=== PATIENT | female | born 1955 | race Two or more races ===

== ENCOUNTER 2020-04-14 08:45 | Outpatient (REF) | payer MEDICARE, MEDICAID, SELFPAY | END 2020-04-14 08:46 | disposition home or self-care (01) | LOC: HO.LAB 08:45 | PROVIDERS: Visit Provider Internal Medicine | DX: Z20.828 Contact with and (suspected) exposure to other viral communicable diseases (principal) | CPT/HCPCS: C9803; U0003 ==

== ENCOUNTER 2020-07-05 08:40 | Outpatient (REF) | payer MEDICARE, MEDICAID, SELFPAY ==
[2020-07-05 09:14] LABS: MANUAL DIFF FLAG NO
[2020-07-05 09:33] LABS: Basophils Absolute Auto 0.1 X10*3/uL (0.0-0.2); Basophils Percent Auto 0.8 % (0-2); Eosinophils Absolute Auto 0.3 X10*3/uL (0.0-0.4); Eosinophils Percent Auto 3.9 % (0-4); Hemoglobin 11.9 g/dl (12.0-16.0); Imm Gran Abs Auto 0.03 X10*3/uL (0.00-0.03); Imm Gran Pct Auto 0.4 % (0.0-0.4); Lymphocytes Absolute Auto 2.6 X10*3/uL (1.2-4.9); Lymphocytes Percent Auto 30.9 % (20-40); Mean Corpuscular HGB Conc 32.2 g/dl (31.0-35.0); Mean Corpuscular Hemoglobin 26.7 pg (27.0-33.0); Mean Corpuscular Volume 83.1 fL (80-98); Mean Platelet Volume 10.2 fL (9.4-12.3); Monocytes Absolute Auto 0.7 X10*3/uL (0.1-1.2); Monocytes Percent Auto 8.7 % (2-11); Neutrophils Absolute Auto 4.7 X10*3/uL (2.0-8.3); Neutrophils Percent Auto 55.3 % (45-73); Platelet Count 332 X10*3/uL (160-400); Red Blood Count 4.45 X10*6/uL (4.20-5.50); Red Cell Distribution Width 15.5 % (11.0-16.0); White Blood Count 8.5 X10*3/uL (4.8-10.8)
[2020-07-05 09:39] LABS: Alanine Aminotransferase 14 U/L (0-31); Albumin Level 4.4 g/dL (3.5-5.0); Alkaline Phosphatase 103 U/L (39-117); Anion Gap 12 (12-20); Aspartate Amino Transferase 14 U/L (5-31); Bilirubin Total 0.4 mg/dL (0.0-1.0); Blood Urea Nitrogen 14 mg/dL (9-16); Calcium 9.8 mg/dL (8.4-10.2); Carbon Dioxide 31 mmol/L (22-29); Chloride 103 mmol/L (96-108); Cholesterol 146 mg/dL; Estimated Glomerular Filt Rate > 60; Glucose Fasting 161 mg/dL (60-99); HDL Cholesterol 42 mg/dL; LDL Cholesterol Calculated 72 mg/dl; Potassium 4.4 mmol/L (3.3-5.1); Sodium 142 mmol/L (135-145); Total Protein 7.2 g/dL (6.5-8.0); Triglycerides 160 mg/dL
[2020-07-05 09:48] LABS: Estimated Average Glucose 171 mg/dL; Hemoglobin A1c % 7.6 %
== END 2020-07-05 08:41 | disposition home or self-care (01) ==
LOC: HO.LAB 08:40
PROVIDERS: PCP Internal Medicine; Visit Provider Internal Medicine
DX: E11.9 Type 2 diabetes mellitus without complications (principal); E78.00 Pure hypercholesterolemia, unspecified; I10 Essential (primary) hypertension; Z68.41 Body mass index [BMI] 40.0-44.9, adult
CPT/HCPCS: 36415; 80053; 80061; 83036; 85025

== ENCOUNTER 2020-12-16 11:13 | Outpatient (REF) | payer MEDICARE, MEDICAID, SELFPAY ==
[2020-12-16 12:12] LABS: MANUAL DIFF FLAG NO
[2020-12-16 12:21] LABS: Basophils Absolute Auto 0.1 X10*3/uL (0.0-0.2); Basophils Percent Auto 1.2 % (0-2); Eosinophils Absolute Auto 0.4 X10*3/uL (0.0-0.4); Eosinophils Percent Auto 4.3 % (0-4); Hematocrit 37.1 % (37-47); Hemoglobin 11.5 g/dl (12.0-16.0); Imm Gran Abs Auto 0.04 X10*3/uL (0.00-0.03); Imm Gran Pct Auto 0.5 % (0.0-0.4); Lymphocytes Absolute Auto 2.4 X10*3/uL (1.2-4.9); Lymphocytes Percent Auto 29.6 % (20-40); Mean Corpuscular Hemoglobin 24.7 pg (27.0-33.0); Mean Corpuscular Volume 79.8 fL (80-98); Mean Platelet Volume 10.3 fL (9.4-12.3); Monocytes Absolute Auto 0.9 X10*3/uL (0.1-1.2); Neutrophils Absolute Auto 4.4 X10*3/uL (2.0-8.3); Neutrophils Percent Auto 53.4 % (45-73); Platelet Count 354 X10*3/uL (160-400); Red Blood Count 4.65 X10*6/uL (4.20-5.50); Red Cell Distribution Width 16.3 % (11.0-16.0); White Blood Count 8.2 X10*3/uL (4.8-10.8)
[2020-12-16 12:32] LABS: Estimated Average Glucose 209 mg/dL; Hemoglobin A1c % 8.9 %
[2020-12-16 12:38] LABS: Alanine Aminotransferase 17 U/L (0-31); Albumin Level 4.1 g/dL (3.5-5.0); Alkaline Phosphatase 112 U/L (39-117); Anion Gap 14 (12-20); Aspartate Amino Transferase 15 U/L (5-31); Bilirubin Total < 0.2 mg/dL (0.0-1.0); Blood Urea Nitrogen 16 mg/dL (9-16); Calcium 9.8 mg/dL (8.4-10.2); Carbon Dioxide 29 mmol/L (22-29); Chloride 104 mmol/L (96-108); Cholesterol 149 mg/dL; Estimated Glomerular Filt Rate > 60; Glucose Random 178 mg/dL (60-115); HDL Cholesterol 42 mg/dL; LDL Cholesterol Calculated 87 mg/dl; Potassium 4.6 mmol/L (3.3-5.1); Sodium 142 mmol/L (135-145); Triglycerides 100 mg/dL
[2020-12-16 13:07] LABS: Microalbum/Creatinine Ratio Ur 4.3 ug/mg cr
== END 2020-12-16 11:14 | disposition home or self-care (01) ==
LOC: HO.LAB 11:13
PROVIDERS: PCP Internal Medicine; Visit Provider Internal Medicine
DX: E11.9 Type 2 diabetes mellitus without complications (principal); E78.2 Mixed hyperlipidemia; F33.41 Major depressive disorder, recurrent, in partial remission; I10 Essential (primary) hypertension
CPT/HCPCS: 36415; 80053; 80061; 82043; 83036; 85025

== ENCOUNTER 2021-04-07 10:46 | Outpatient (REF) | payer MEDICARE, SELFPAY ==
[2021-04-07 12:02] LABS: Estimated Average Glucose 200 mg/dL; Hemoglobin A1c % 8.6 %
[2021-04-07 12:15] LABS: Alanine Aminotransferase 16 U/L (0-31); Albumin Level 4.2 g/dL (3.5-5.0); Alkaline Phosphatase 108 U/L (39-117); Anion Gap 15 (12-20); Aspartate Amino Transferase 15 U/L (5-31); Bilirubin Total 0.2 mg/dL (0.0-1.0); Blood Urea Nitrogen 13 mg/dL (9-16); Calcium 10.1 mg/dL (8.4-10.2); Carbon Dioxide 29 mmol/L (22-29); Chloride 102 mmol/L (96-108); Estimated Glomerular Filt Rate > 60; Glucose Random 132 mg/dL (60-115); Potassium 4.8 mmol/L (3.3-5.1); Sodium 141 mmol/L (135-145); Total Protein 7.1 g/dL (6.5-8.0)
== END 2021-04-07 10:47 | disposition home or self-care (01) ==
LOC: HO.LAB 10:46
PROVIDERS: PCP Internal Medicine; Visit Provider Internal Medicine
DX: Z00.01 Encounter for general adult medical examination with abnormal findings (principal); E11.65 Type 2 diabetes mellitus with hyperglycemia; F33.41 Major depressive disorder, recurrent, in partial remission; M48.061 Spinal stenosis, lumbar region without neurogenic claudication; M76.60 Achilles tendinitis, unspecified leg
CPT/HCPCS: 36415; 80053; 83036

== ENCOUNTER 2021-07-08 10:00 | Outpatient (REF) | payer MEDICARE, SELFPAY ==
[2021-07-08 11:30] LABS: Estimated Average Glucose 189 mg/dL; Hemoglobin A1c % 8.2 %
[2021-07-08 11:39] LABS: Alanine Aminotransferase 13 U/L (0-31); Albumin Level 4.1 g/dL (3.5-5.0); Alkaline Phosphatase 97 U/L (39-117); Anion Gap 14 (12-20); Aspartate Amino Transferase 16 U/L (5-31); Bilirubin Total 0.3 mg/dL (0.0-1.0); Blood Urea Nitrogen 14 mg/dL (9-16); Calcium 9.9 mg/dL (8.4-10.2); Carbon Dioxide 32 mmol/L (22-29); Chloride 102 mmol/L (96-108); Estimated Glomerular Filt Rate > 60; Glucose Random 147 mg/dL (60-115); Potassium 4.5 mmol/L (3.3-5.1); Sodium 143 mmol/L (135-145); Total Protein 7.1 g/dL (6.5-8.0)
== END 2021-07-08 10:01 | disposition home or self-care (01) ==
LOC: HO.LAB 10:00
PROVIDERS: PCP Internal Medicine; Visit Provider Internal Medicine
DX: E11.65 Type 2 diabetes mellitus with hyperglycemia (principal); E78.00 Pure hypercholesterolemia, unspecified; I10 Essential (primary) hypertension
CPT/HCPCS: 36415; 80053; 83036

== ENCOUNTER 2021-12-28 09:04 | Outpatient (REF) | payer MEDICARE, SELFPAY ==
[2021-12-28 09:18] LABS: MANUAL DIFF FLAG NO
[2021-12-28 09:28] LABS: Eosinophils Percent Auto 4.8 % (0-4); Hematocrit 37.9 % (37.0-47.0); Hemoglobin 11.6 g/dl (12.0-16.0); Imm Gran Abs Auto 0.05 X10*3/uL (0.00-0.03); Imm Gran Pct Auto 0.5 % (0.0-0.4); Lymphocytes Absolute Auto 2.8 X10*3/uL (1.2-4.9); Lymphocytes Percent Auto 27.8 % (20-40); Mean Corpuscular HGB Conc 30.6 g/dl (31.0-35.0); Mean Corpuscular Hemoglobin 23.7 pg (27.0-33.0); Mean Corpuscular Volume 77.5 fL (80.0-98.0); Mean Platelet Volume 9.8 fL (9.4-12.3); Monocytes Absolute Auto 1.1 X10*3/uL (0.1-1.2); Monocytes Percent Auto 11.4 % (2-11); Neutrophils Absolute Auto 5.5 x10*3/uL (2.0-8.3); Neutrophils Percent Auto 54.5 % (45-73); Platelet Count 325 X10*3/uL (160-400); Red Blood Count 4.89 X10*6/uL (4.20-5.50); Red Cell Distribution Width 18.5 % (11.0-16.0)
[2021-12-28 09:29] LABS: Basophils Absolute Auto 0.1 X10*3/uL (0.0-0.2); Eosinophils Absolute Auto 0.5 X10*3/uL (0.0-0.4)
[2021-12-28 09:39] LABS: Estimated Average Glucose 174 mg/dL; Hemoglobin A1c % 7.7 %
[2021-12-28 10:04] LABS: Alanine Aminotransferase 13 U/L (0-31); Albumin Level 4.2 g/dL (3.5-5.0); Alkaline Phosphatase 110 U/L (39-117); Anion Gap 15 (12-20); Aspartate Amino Transferase 14 U/L (5-31); Bilirubin Total 0.2 mg/dL (0.0-1.0); Blood Urea Nitrogen 23 mg/dL (9-16); Calcium 10.2 mg/dL (8.4-10.2); Carbon Dioxide 28 mmol/L (22-29); Chloride 103 mmol/L (96-108); Cholesterol 163 mg/dL; Estimated Glomerular Filt Rate > 60; Glucose Random 157 mg/dL (60-115); HDL Cholesterol 48 mg/dL; LDL Cholesterol Calculated 87 mg/dl; Potassium 4.6 mmol/L (3.3-5.1); Sodium 141 mmol/L (135-145); Total Protein 7.2 g/dL (6.5-8.0); Triglycerides 142 mg/dL
[2021-12-28 10:26] LABS: Thyroid Stimulating Hormone 3.28 uIU/mL (0.32-4.0)
[2021-12-28 12:53] LABS: Creatinine Urine 60.28 mg/dL; Microalbumin Urine < 5.0 mg/L
== END 2021-12-28 09:05 | disposition home or self-care (01) ==
LOC: HO.LAB 09:04
PROVIDERS: PCP Internal Medicine; Visit Provider Internal Medicine
DX: E11.65 Type 2 diabetes mellitus with hyperglycemia (principal); E78.00 Pure hypercholesterolemia, unspecified; I10 Essential (primary) hypertension; J45.909 Unspecified asthma, uncomplicated
CPT/HCPCS: 36415; 80053; 80061; 82043; 83036; 84443; 85025

== ENCOUNTER 2022-02-08 12:40 | Outpatient (REF) | payer MEDICARE, SELFPAY ==
--- NOTE | ~2022-02-08 | MM_ITS ---
EXAMINATION: MM SCREENING DIGITAL BREAST TOMOSYNTHESIS, BILATERAL CLINICAL INFORMATION: Screening. Asymptomatic. The lifetime risk of breast cancer based on the Tyrer-Cuzick Model is 3%. COMPARISON: Mammography: 12/22/2018, 12/02/2017, 10/26/2016 TECHNIQUE: Digital breast tomosynthesis is performed in both the craniocaudal and mediolateral oblique views along with computer-aided detection (CAD). Synthesized 2D images are generated from the tomosynthesis. Additional right CC view is provided. FINDINGS: There are scattered areas of fibroglandular density (ACR BI-RADS breast composition Category b). There are no significant masses, abnormal calcifications, or other abnormalities. There are scattered bilateral fine benign round, vascular, and some ductal secretory calcifications again seen. Biopsy clip marker again noted left breast mid upper inner quadrant. The axilla and skin contours are unremarkable. MM/MM tomosynthesis screening BI IMPRESSION: No mammographic evidence of malignancy. ASSESSMENT: BI-RADS 2: Benign RECOMMENDATION: Routine annual mammography screening. This patient's information was entered into a reminder system with a target due date for their next mammogram.
== END 2022-02-08 12:41 | disposition home or self-care (01) ==
LOC: HO.MAMMO 12:40
PROVIDERS: PCP Internal Medicine; Visit Provider Internal Medicine
DX: Z12.31 Encounter for screening mammogram for malignant neoplasm of breast (principal)
CPT/HCPCS: 77063; 77067

== ENCOUNTER → 2022-03-22 12:58 | Outpatient (BNVA) | payer MEDICARE, SELFPAY | PROVIDERS: PCP Internal Medicine; Visit Provider Physician Assistant | DX: Z12.11 Encounter for screening for malignant neoplasm of colon (principal); R01.1 Cardiac murmur, unspecified; D50.9 Iron deficiency anemia, unspecified | CPT/HCPCS: 99202; 99212 ==

== ENCOUNTER → 2022-04-26 14:44 | Outpatient (BNVA) | payer MEDICARE, SELFPAY | PROVIDERS: PCP Internal Medicine; Visit Provider Physician Assistant | DX: D50.9 Iron deficiency anemia, unspecified (principal) | CPT/HCPCS: 99212 ==

== ENCOUNTER → 2022-05-05 14:15 | Outpatient (REF) | payer MEDICARE, SELFPAY ==
--- NOTE | 2022-05-05 14:19 | CA_ITS ---
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 Normal LV systolic function with impaired relaxation filling pattern 2. Ibpw-ws-wlmotgin aortic stenosis 3. No gross pericardial effusion Findings Left Ventricle Normal left ventricular size, thickness, and systolic function. The visually estimated ejection fraction is between 65-70%. Spectral Doppler is indicative of an impaired relaxation filling pattern. E/E prime ratio is between 8 and 15 consistent with indeterminate filling pressures. Right Ventricle Normal right ventricular cavity size and systolic function. Atria The left atrium is likely dilated. Interatrial shunt cannot be excluded. The right atrium is normal in size. Aortic Valve There is mild calcification of the aortic valve. There is mild thickening of the aortic valve. There is mild to moderate aortic valve stenosis. There is no aortic valve regurgitation. Mitral Valve There is mild anterior and posterior mitral leaflet thickening. There is mild mitral annular calcification. There is trace mitral valve regurgitation. There is no mitral valve stenosis. Pulmonic Valve The pulmonic valve was not well visualized. Tricuspid Valve Likely normal tricuspid valve structure and function. Tricuspid regurgitation envelope is inadequate for calculation of right ventricular systolic pressure. Normal right atrial pressure. Great Vessels All visible segments of the aorta are normal in size. The pulmonary artery was not well visualized. Venous The inferior vena cava is normal in size and collapses greater than 50% with inspiration. Pericardium/Pleural There is no evidence of pericardial effusion. Prior Study Comparison No prior study available for comparison. Measurements 2D Linear Measurements IVSd: 1.11 0.6-0.9/0.6-1.0 cm LVIDd: 4.63 3.9-5.3/4.2-5.9 cm LVIDd Index: 2.34 2.4-3.2/2.2-3.1 cm/m2 LVIDs: 2.66 2.0-3.6 cm LVPWd: 1.03 0.7-1.1 cm LA Diam: 3.30 2.7-3.8/3.0-4.0 cm LAIDs Index: 1.67 1.5-2.3 cm/m2 LV Mass: 219.48 67-162/88-224 g LV Mass Index: 110.85 43-95/49-115 g/m2 LVOT Diam: 2.10 3.0+(-)1.3 cm 2D Systolic Function EF 4C: 69.00 >55% EF 2C: 68.20 >55% EF BiP: 68.50 >55% Mitral Valve MV VTI: 0.38 MV Pk Aleksander: 1.10 MV Mn Aleksander: 0.62 MV Pk Grad: 5.00 MV Mn Grad: 2.00 MV Pk E: 0.70 MV PK A: 0.86 MV Decel Time: 280.00 E/A: 0.80 E'Lateral: 8.81 E'Medial: 5.55 E/E' Med: 12.60 E/E' Lat: 7.90 PHT: 82.00 MVA PHT: 2.68 MVA Continuity: 1.91 Decel Alcorn: 2.50 Aortic Valve AoV Pk Aleksander: 2.34 AoV Mn Aleksander: 1.52 AoV VTI: 0.50 AoV Pk Grad: 22.00 Aov Mn Grad: 11.00 PATRICIA Cont.VTI: 1.46 LVOT LVOT Pk Aleksander: 0.92 LVOT Mn Aleksander: 0.63 LVOT VTI: 0.21 LVOT Pk Grad: 3.00 LVOT Mn Grad: 2.00 LVOT Diam: 2.10 LVOT Area: 3.46 Diastolic Function MV Pk E: 0.70 MV Pk A: 0.86 E/A: 0.80 E'Medial: 5.55 E/E' Med: 12.60 E' Laterial: 8.81 E/E' Lat: 7.90 Right Ventricle TAPSE (mm): 21.90 TVS' Aleksander: 12.00 Tricuspid Valve RA Press: 3.00 Great Vessels Aorta Sinus of Valsalva: 3.30 2.0-3.5 cm Ao Asc: 3.40 2.1-3.4 cm Updated in Other Vendor System with Status of Final Eloy Wilson MD electronically signed on 05/05/2022 5:35:52 PM with status of Final
== END ==
LOC: HO.CARD 14:15
PROVIDERS: PCP Internal Medicine; Visit Provider Physician Assistant
DX: R01.1 Cardiac murmur, unspecified (principal)
CPT/HCPCS: 93306

== ENCOUNTER 2022-05-11 09:37 | Outpatient (REF) | payer MEDICARE, SELFPAY ==
[2022-05-11 09:53] LABS: MANUAL DIFF FLAG NO
[2022-05-11 10:20] LABS: Basophils Absolute Auto 0.1 X10*3/uL (0.0-0.2); Eosinophils Absolute Auto 0.4 X10*3/uL (0.0-0.4); Eosinophils Percent Auto 4.8 % (0-4); Hematocrit 40.7 % (37.0-47.0); Hemoglobin 12.3 g/dl (12.0-16.0); Imm Gran Abs Auto 0.03 X10*3/uL (0.00-0.03); Imm Gran Pct Auto 0.3 % (0.0-0.4); Lymphocytes Absolute Auto 2.5 X10*3/uL (1.2-4.9); Lymphocytes Percent Auto 28.7 % (20-40); Mean Corpuscular HGB Conc 30.2 g/dl (31.0-35.0); Mean Corpuscular Hemoglobin 24.1 pg (27.0-33.0); Mean Corpuscular Volume 79.8 fL (80.0-98.0); Mean Platelet Volume 10.4 fL (9.4-12.3); Monocytes Percent Auto 11.1 % (2-11); Neutrophils Absolute Auto 4.8 x10*3/uL (2.0-8.3); Neutrophils Percent Auto 54.1 % (45-73); Platelet Count 331 X10*3/uL (160-400); Red Cell Distribution Width 18.1 % (11.0-16.0); White Blood Count 8.8 X10*3/uL (4.8-10.8)
[2022-05-11 10:35] LABS: Estimated Average Glucose 169 mg/dL; Hemoglobin A1c % 7.5 %
[2022-05-11 11:07] LABS: Alanine Aminotransferase 11 U/L (0-31); Albumin Level 4.3 g/dL (3.5-5.0); Alkaline Phosphatase 106 U/L (39-117); Anion Gap 12 (12-20); Aspartate Amino Transferase 14 U/L (5-31); Bilirubin Total 0.3 mg/dL (0.0-1.0); Blood Urea Nitrogen 18 mg/dL (9-16); Calcium 10.3 mg/dL (8.4-10.2); Carbon Dioxide 32 mmol/L (22-29); Chloride 105 mmol/L (96-108); Estimated Glomerular Filt Rate > 60; Glucose Random 149 mg/dL (60-115); Potassium 4.5 mmol/L (3.3-5.1); Sodium 144 mmol/L (135-145); Total Protein 7.2 g/dL (6.5-8.0)
[2022-05-11 11:16] LABS: Ferritin 17 ng/mL (10-250)
[2022-05-11 17:42] LABS: Vitamin B12 414 pg/mL (200-900)
== END 2022-05-11 09:38 | disposition home or self-care (01) ==
LOC: HO.LAB 09:37
PROVIDERS: PCP Internal Medicine; Visit Provider Internal Medicine
DX: Z00.00 Encounter for general adult medical examination without abnormal findings (principal); I10 Essential (primary) hypertension; G54.8 Other nerve root and plexus disorders; E78.00 Pure hypercholesterolemia, unspecified; E11.9 Type 2 diabetes mellitus without complications; D64.89 Other specified anemias
CPT/HCPCS: 36415; 80053; 82607; 82728; 83036; 85025

== ENCOUNTER 2022-10-12 10:45 | Outpatient (REF) | payer MEDICARE, SELFPAY ==
[2022-10-12 11:35] LABS: Estimated Average Glucose 180 mg/dL; Hemoglobin A1c % 7.9 %
[2022-10-12 12:17] LABS: Alanine Aminotransferase 11 U/L (0-31); Alkaline Phosphatase 117 U/L (39-117); Anion Gap 11 (12-20); Aspartate Amino Transferase 12 U/L (5-31); Bilirubin Total 0.4 mg/dL (0.0-1.0); Blood Urea Nitrogen 15 mg/dL (9-16); Calcium 10.2 mg/dL (8.4-10.2); Carbon Dioxide 32 mmol/L (22-29); Chloride 106 mmol/L (96-108); Estimated Glomerular Filt Rate > 60; Glucose Random 165 mg/dL (60-115); Potassium 5.3 mmol/L (3.3-5.1); Sodium 144 mmol/L (135-145)
== END 2022-10-12 10:46 | disposition home or self-care (01) ==
LOC: HO.LAB 10:45
PROVIDERS: PCP Internal Medicine; Visit Provider Internal Medicine
DX: E11.9 Type 2 diabetes mellitus without complications (principal); E78.00 Pure hypercholesterolemia, unspecified; G47.33 Obstructive sleep apnea (adult) (pediatric); I10 Essential (primary) hypertension
CPT/HCPCS: 36415; 80053; 83036

== ENCOUNTER 2022-10-28 10:41 | Day surgery (SDC) | payer MEDICARE, SELFPAY ==
--- NOTE | 2022-10-27 10:26 | HO.ANESPROP2 ---
Documented by User: Denisse Hansen NP 10/27/22 10:28 HPI - Anesthesia Eval Consult details Narrative: 67yo F for Upper Endoscopy and Colonoscopy PMFSH Active Problems Active Problems: All Active Problems (Updated 10/25/22 @ 13:53 by Judy Mitchell, [email or web address]) Heart murmur (Acute) Encounter for screening colonoscopy (Acute) Iron deficiency anemia (Acute) Past Medical History Medical History Asthma Diabetes Gout Heart murmur HTN (hypertension) Family History Family History Maternal Uncle Cancer Maternal Aunt Cancer Surgical History Surgical History H/O colonoscopy History of tubal ligation Social History Social History Household Members Other:: Niece lives with her Alcohol intake: never Patient Tobacco Use Status: Never used Tobacco Use of substances other than those prescribed or required for medical reasons: No Are you DNR?: No Advance Directives: No Advance Directives Information Provided: Yes Current occupational status: unemployed Meds Allergies Allergy/AdvReac Type Severity Reaction Status Date / Time Metformin & Diet Manage Prod AdvReac Unknown Diarrhea Uncoded 03/22/22 13:08 Home Medications Medication Instructions Recorded Confirmed Last Taken Type albuterol sulfate 90 mcg/actuation 0 mcg inhalation 03/22/22 04/27/22 Unknown History aerosol inhaler allopurinol 300 mg tablet 300 mg PO DAILY 03/22/22 10/25/22 Unknown History amlodipine 10 mg tablet 10 mg PO DAILY 03/22/22 10/25/22 Unknown History aspirin 81 mg tablet,delayed 81 mg PO DAILY 03/22/22 10/25/22 Unknown History release atorvastatin 10 mg tablet 10 mg PO DAILY 03/22/22 10/25/22 Unknown History calcium carbonate 600 mg-vitamin 1 tab PO BID 03/22/22 10/25/22 Unknown History D3 20 mcg (800 unit) tablet diclofenac sodium 75 mg 75 mg PO BID 03/22/22 10/25/22 Unknown History tablet,delayed release dulaglutide 1.5 mg/0.5 mL mg subcut QWEEK 03/22/22 04/27/22 Unknown History subcutaneous pen injector (Trulicity) empagliflozin 25 mg tablet 25 mg PO DAILY 03/22/22 10/25/22 Unknown History (Jardiance) gabapentin 600 mg tablet 600 mg PO TID 03/22/22 10/25/22 Unknown History glipizide 5 mg tablet, extended 5 mg PO DAILY 03/22/22 10/25/22 Unknown History release 24 hr metformin 500 mg tablet,extended 1,000 mg PO BID 03/22/22 10/25/22 Unknown History release 24 hr olmesartan 40 1 tab PO DAILY 03/22/22 10/25/22 Unknown History mg-hydrochlorothiazide 25 mg tablet omeprazole 20 mg capsule,delayed 20 mg PO DAILY 03/22/22 10/25/22 Unknown History release sertraline 50 mg tablet 50 mg PO DAILY 03/22/22 10/25/22 Unknown History topiramate 100 mg tablet 100 mg PO DAILY 03/22/22 10/25/22 Unknown History Exam Exam Date and Time: October 27, 2022 1026 Pertinent Lab Results Pertinent Lab Results: Laboratory Tests 05/11/22 10/12/22 09:52 11:00 WBC 8.8 Hgb 12.3 Hct 40.7 Plt Count 331 Sodium 144 Potassium 5.3 H Chloride 106 Carbon Dioxide 32 H BUN 15 Creatinine 0.70 Narrative Narrative: ECHO 04/2022 Conclusions: - 1. Normal LV systolic function with impaired relaxation filling pattern? 2. [id number]-[id number] aortic stenosis? 3. No gross pericardial effusion ?? Assessment and Plan Assessment Anesthesia Assessment: Chart Reviewed Documented by User: Shalini Siu MD 10/28/22 12:02 PMFSH Past Medical History Medical History Asthma Diabetes Gout Heart murmur HTN (hypertension) Family History Family History Maternal Uncle Cancer Maternal Aunt Cancer Surgical History Surgical History H/O colonoscopy History of tubal ligation History of Problems with Anesthesia: No Social History Social History Household Members Other:: Niece lives with her Alcohol intake: never Patient Tobacco Use Status: Never used Tobacco Use of substances other than those prescribed or required for medical reasons: No Are you DNR?: No Advance Directives: No Advance Directives Information Provided: Yes Current occupational status: unemployed Meds Allergies Allergy/AdvReac Type Severity Reaction Status Date / Time Metformin & Diet Manage Prod AdvReac Unknown Diarrhea Uncoded 03/22/22 13:08 Home Medications Medication Instructions Recorded Confirmed Last Taken Type albuterol sulfate 90 mcg/actuation 0 mcg inhalation 03/22/22 04/27/22 Unknown History aerosol inhaler allopurinol 300 mg tablet 300 mg PO DAILY 03/22/22 10/25/22 Unknown History amlodipine 10 mg tablet 10 mg PO DAILY 03/22/22 10/25/22 Unknown History aspirin 81 mg tablet,delayed 81 mg PO DAILY 03/22/22 10/25/22 Unknown History release atorvastatin 10 mg tablet 10 mg PO DAILY 03/22/22 10/25/22 Unknown History calcium carbonate 600 mg-vitamin 1 tab PO BID 03/22/22 10/25/22 Unknown History D3 20 mcg (800 unit) tablet diclofenac sodium 75 mg 75 mg PO BID 03/22/22 10/25/22 Unknown History tablet,delayed release dulaglutide 1.5 mg/0.5 mL mg subcut QWEEK 03/22/22 04/27/22 Unknown History subcutaneous pen injector (Trulicity) empagliflozin 25 mg tablet 25 mg PO DAILY 03/22/22 10/25/22 Unknown History (Jardiance) gabapentin 600 mg tablet 600 mg PO TID 03/22/22 10/25/22 Unknown History glipizide 5 mg tablet, extended 5 mg PO DAILY 03/22/22 10/25/22 Unknown History release 24 hr metformin 500 mg tablet,extended 1,000 mg PO BID 03/22/22 10/25/22 Unknown History release 24 hr olmesartan 40 1 tab PO DAILY 03/22/22 10/25/22 Unknown History mg-hydrochlorothiazide 25 mg tablet omeprazole 20 mg capsule,delayed 20 mg PO DAILY 03/22/22 10/25/22 Unknown History release sertraline 50 mg tablet 50 mg PO DAILY 03/22/22 10/25/22 Unknown History topiramate 100 mg tablet 100 mg PO DAILY 03/22/22 10/25/22 Unknown History Exam Airway Mallampati Class: III TM Dist: >3cm Neck ROM: Full Loose/Missing/Broken Teeth: No Heart: RRR Lungs: CTA Assessment and Plan Assessment Anesthesia Assessment: Anesthesia Plan Discussed Final Anesthetic Review History of Problems with Anesthesia: No NPO: Yes ASA Class: III Final Preanesthetic Review: Meds/Allgs Chart Reviewed, Consent Obtained/Reviewed and Anes Risks/Benef Reviewed Patient Risk: Intermediate Procedure Risk: Intermediate Anesthetic Plan Anesthetic Plan: MAC: Disposition: Standard PACU
[2022-10-28 11:15] VITALS: BMI 38.5
[2022-10-28 11:23] LABS: Glucose, Whole Blood 165 mg/dL (60-115)
--- NOTE | 2022-10-28 11:32 | MHC.SHP ---
Pre-Procedural Eval Section A Date of Service: 10/28/22 Section B Chief Complaint: Anemia Details of Present Illness: PMH: Aortic stenosis Surgical History H/O colonoscopy Family History Maternal Uncle Cancer Maternal Aunt Cancer Present Medications: see Short Stay Collaborative assessment Allergies: Allergies Allergy/AdvReac Type Severity Reaction Status Date / Time Metformin & Diet Manage Prod AdvReac Unknown Diarrhea Uncoded 03/22/22 13:08 Review of Systems Review of Systems Comment: 10 point ROS negative Exam Exam Comment: Gen appear: No acute distress HEENT: no icterus Chest: No overt resp distress Abd: soft, nontender, nondistended Psych: Stable affect, answering questions appropriately Neuro: A/Ox3 noted to move all extremities spontaneously Ext: no peripheral edema Plan Diagnosis/Plan: Unchanged I have reviewed the history and physical and performed a pertinent physical examination on my patient. No changes have occurred unless specified. Time Spent With Patient Time: Total time managing care of this patient today ____ minutes.
--- NOTE | 2022-10-28 11:34 | P.OP_ITS ---
Operative Note Operative Note Date of Service: 10/28/22 Narrative: Procedure:?Esophagogastroduodenoscopy and colonoscopy Endoscopist:?Carla Franklin MD Indication:?Anemia Anesthesia Provider:?Luna Edwards Anesthesia Type:?MAC Instrument:?Olympus GIF-H190, PCF-190L EGD Procedure:?? The procedure, indications, preparation and potential complications were reviewed with the patient, who indicated understanding and gave written informed consent to proceed. family practice doctor assisted with the encounter. A physical exam was performed. The endoscope was introduced through the mouth, and advanced to the second part of duodenum. The mucosa was carefully examined on slow withdrawal of the endoscope. The patient tolerated the procedure well. There were no immediate complications.? EGD Findings:? * Esophagus:? Normal mucosa noted in the entire esophagus. The Z line was at 38 cm.? * Stomach:? Normal gastric mucosa was noted in the whole stomach. Random cold forceps biopsies were taken for H pylori. * Duodenum:? Normal mucosa was noted in the duodenum to the extent examined. Cold forceps biopsies were taken from the duodenal bulb and second portion of the duodenum to r/o celiac disease. Colonoscopy Procedure:? The patient was then turned for the colonoscopy. A digital rectal exam was performed which was normal.? A distal attachment cap was affixed to the tip of the scope and the colonoscope was then inserted through the anus and advanced through the colon to the cecum at 95 cm.? Appendiceal orifice and ileocecal valve were identified.? Mucosa was carefully examined under high definition white light as the instrument was slowly withdrawn in a retrograde panoramic fashion. Retroflexion was performed in rectum. The procedure was not difficult. There were no immediate obvious complications. The quality of the prep was BBPS: 2+2+2= adequate Withdrawal time 10 minutes. Limitations: No limitations.? Findings: Mucosa: Normal mucosa to cecum. Protruding lesions: * Medium internal hemorrhoids without stigmata of recent bleeding. Excavated lesions: * Scattered diverticulosis in left side of the colon. Impression: 1. Normal esophagus 2. Normal stomach (biopsy) 3. Normal duodenum (biopsy) 4. Normal colon mucosa 5. Internal hemorrhoids 6. Mild diverticulosis 7. Fair prep Recommendations:?? * Follow biopsy results, office will call or send a letter within 7-10 days.? * Future colonoscopy for asymptomatic CRC screening in 5-7 years due to prep. * Anemia has improved based on most recent labs, however if recurs, can consider small bowel evaluation. Findings were reviewed with the patient.
[2022-10-28] MEDS: Lactated Ringers 1,000 ML 100 ML IVCONT (11:51)
[2022-10-28 12:45] VITALS: BP 97/53; PULSE 90; RESP 16; TEMP 36.7; O2SAT 100
[2022-10-28 13:00] VITALS: BP 110/53; PULSE 79; RESP 16; TEMP 36.6; O2SAT 95
== END 2022-10-28 13:16 | disposition home or self-care (01) ==
PROVIDERS: PCP Internal Medicine; Visit Provider Internal Medicine
PROC: (CPT 45378; principal; 2022-10-28 11:50)
DX: D64.9 Anemia, unspecified (principal); K57.30 Diverticulosis of large intestine without perforation or abscess without bleeding; K64.8 Other hemorrhoids; K29.50 Unspecified chronic gastritis without bleeding; R01.1 Cardiac murmur, unspecified; I10 Essential (primary) hypertension; M10.9 Gout, unspecified; J45.909 Unspecified asthma, uncomplicated; Z79.82 Long term (current) use of aspirin; Z79.84 Long term (current) use of oral hypoglycemic drugs; Z79.85 Long-term (current) use of injectable non-insulin antidiabetic drugs; Z88.8 Allergy status to other drugs, medicaments and biological substances
CPT/HCPCS: 45378; 43239; 82947; 88305; 88342

== ENCOUNTER 2022-12-22 11:24 | Outpatient (AMB) | payer MEDICARE, SELFPAY ==
--- NOTE | 2022-12-22 11:26 | A.OFFVIS_ITS ---
Intake Vital Signs 12/22/22 11:27 Height 5 ft 2 in Weight 211 lb BMI 38.6 BP 112/56 L Blood Pressure Location Lt brachial Position Sitting Pulse 84 Intake Visit Reasons: follow up from 11/15 Intake Note: Patient follow up for Patient denies any GI issues. 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 Accompanied by: Self / Same As Patient Allergies Metformin & Diet Manage Prod Adverse Reaction (Unknown, Uncoded 03/22/22 13:08) Diarrhea Medication List - Last Reconciled 12/22/22 by Shruthi Louis PA-C albuterol sulfate 90 mcg/actuation 0 mcg inhalation allopurinol 300 mg PO DAILY amlodipine 10 mg PO DAILY aspirin 81 mg PO DAILY atorvastatin 10 mg PO DAILY calcium carbonate-vitamin D3 600 mg-20 mcg (800 unit) 1 tab PO BID diclofenac sodium 75 mg PO BID dulaglutide (Trulicity) mg subcut QWEEK empagliflozin (Jardiance) 25 mg PO DAILY gabapentin 600 mg PO TID glipizide ER 5 mg PO DAILY metformin ER 1,000 mg PO BID olmesartan-hydrochlorothiazide 40-25 mg 1 tab PO DAILY omeprazole 20 mg PO DAILY sertraline 50 mg PO DAILY topiramate 100 mg PO DAILY HPI HPI Comments History of Present Illness Details A 67-year-old female follows up after recent EGD colonoscopy-reveal inadequate prep. She has intermittent constipation she is not consistent with regimen Appetite is good she does have acid reflux despite PPI Reviewed procedure report and pathology No nausea, vomiting, hematemesis, hematochezia fever chills PFSH Medical History (Updated 12/22/22 @ 12:37 by Shruthi Louis PA-C) Asthma Diabetes Gout Heart murmur HTN (hypertension) Surgical History H/O colonoscopy History of esophagogastroduodenoscopy (EGD) History of tubal ligation Family History Maternal Uncle Cancer Maternal Aunt Cancer Social History Household Members Other:: Niece lives with her Alcohol intake: never Patient Tobacco Use Status: Never used Tobacco Current occupational status: unemployed Review of Systems Const All systems reviewed & are unremarkable except as noted in HPI and below Card Denies chest pain and Denies dyspnea Resp Denies dyspnea GI Denies abdominal pain, Denies hematochezia, Reports constipation, Reports dyspepsia, Denies nausea and Denies vomiting Physical Exam Vital Signs: Last Vital Signs Pulse 84 12/22/22 11:27 BP 112/56 L 12/22/22 11:27 BMI result Body Mass Index 38.6 Const General: cooperative and comfortable Nutritional Appearance: overweight Orientation/consciousness: patient oriented x3 Limitations: language barrier Eyes Sclerae: sclerae normal Resp Effort & Inspection: normal respiratory effort and able to speak in complete sentences Neuro General: patient oriented x3 Extrem General: Yes full ROM Psych Mental Status: mental status grossly normal Speech and movement: Normal speech and movement present Affect: normal affect Thought process: Normal thought process present Thought content: Normal thought content present Results Reviewed Results Reviewed: Findings: Mucosa: Normal mucosa to cecum. Protruding lesions: * Medium internal hemorrhoids without stigmata of recent bleeding.Excavated lesions: * Scattered diverticulosis in left side of the colon.Impression: 1. Normal esophagus 2. Normal stomach (biopsy) 3. Normal duodenum (biopsy) 4. Normal colon mucosa 5. Internal hemorrhoids 6. Mild diverticulosis 7. Fair prep Recommendations:?? * Follow biopsy results, office will call or send a letter within 7-10 days.? * Future colonoscopy for asymptomatic CRC screening in 5-7 years due to prep. * Anemia has improved based on most recent labs, however if recurs, can consider small bowel evaluation. Findings were reviewed with the patient. Name:?Rita BanksLakeisha Debbie Age/Sex: 67/F Attending: Carla Franklin MD : 1955 Submitted by: Carla Franklin MD Copies to: Nickie Maher MD MR #: [id number] ? Status: [facility] [place] Collected: 10/28/22 Location: [facility] Received: 10/28/22 Diagnosis A.? Duodenum, biopsy:? Duodenal mucosa with preserved villi and no specific change.? B.? Stomach, random, biopsy:? Gastric antral and body mucosa with mild reactive changes and minimal chronic inactive gastritis; negative for H pylori, intestinal metaplasia and dysplasia.? Clinical History Pre-Op Dx:? Anemia Post-Op Dx: Normal EGD exam, diverticulosis, hemorrhoids, fair prep Microscopic Description Microscopic sections reviewed.? Immunohistochemical stain for H. pylori on B is negative with appropriate control. Assessment & Plan Assessment & Plan (1) Diverticulosis of colon: Comment: Educate diverticulosis diverticulitis ER protocol Maintain high-fiber diet Code(s): K57.30 - Diverticulosis of large intestine without perforation or abscess without bleeding (2) Hemorrhoids: Comment: Non bleeding, never had issues Code(s): K64.9 - Unspecified hemorrhoids Plan: High-fiber diet avoid straight (3) Iron deficiency anemia: Code(s): D50.9 - Iron deficiency anemia, unspecified Plan: Anemia has improved based on most recent labs, however if recurs, can consider small bowel evaluation. Findings were reviewed with the patient Medications: New methylcellulose (laxative) (Citrucel) 500 mg PO TID 30 days 90 tabs 5RF Patient Instructions: Repeat asymptomatic colonoscopy 5-7 years Maintain HFD avoid strainng with hemorrhoids Diverticulosis/diverticulitis- ER protocol Anemia has improved based on most recent labs, however if recurs, can consider small bowel evaluation. 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
[2022-12-22 11:27] VITALS: BP 112/56; PULSE 84; BMI 38.6
== END 2022-12-22 12:02 | disposition home or self-care (01) ==
PROVIDERS: PCP Internal Medicine; Visit Provider Physician Assistant
DX: K57.30 Diverticulosis of large intestine without perforation or abscess without bleeding (principal); K64.9 Unspecified hemorrhoids; D50.9 Iron deficiency anemia, unspecified
CPT/HCPCS: 99213

== ENCOUNTER → 2022-12-22 11:24 | Outpatient (BNVA) | payer MEDICARE, SELFPAY | PROVIDERS: PCP Internal Medicine; Visit Provider Physician Assistant | DX: K57.30 Diverticulosis of large intestine without perforation or abscess without bleeding (principal); K64.9 Unspecified hemorrhoids; D50.9 Iron deficiency anemia, unspecified | CPT/HCPCS: 99212 ==

== ENCOUNTER 2023-02-04 11:47 | Outpatient (REF) | payer MEDICARE, SELFPAY ==
[2023-02-04 13:00] LABS: Estimated Average Glucose 183 mg/dL
[2023-02-04 13:07] LABS: Alanine Aminotransferase 11 U/L (0-31); Alkaline Phosphatase 104 U/L (39-117); Anion Gap 15 (12-20); Aspartate Amino Transferase 14 U/L (5-31); Bilirubin Total 0.3 mg/dL (0.0-1.0); Blood Urea Nitrogen 15 mg/dL (9-16); Carbon Dioxide 26 mmol/L (22-29); Chloride 105 mmol/L (96-108); Estimated Glomerular Filt Rate > 60; Glucose Random 162 mg/dL (60-115); Potassium 4.1 mmol/L (3.3-5.1); Sodium 142 mmol/L (135-145); Total Protein 7.3 g/dL (6.5-8.0)
== END 2023-02-04 11:48 | disposition home or self-care (01) ==
LOC: HO.LAB 11:47
PROVIDERS: PCP Internal Medicine; Visit Provider Internal Medicine
DX: E11.65 Type 2 diabetes mellitus with hyperglycemia (principal); G47.33 Obstructive sleep apnea (adult) (pediatric); I10 Essential (primary) hypertension
CPT/HCPCS: 36415; 80053; 83036

== ENCOUNTER 2023-02-15 12:42 | Outpatient (REF) | payer MEDICARE, SELFPAY ==
--- NOTE | ~2023-02-15 | MM_ITS ---
EXAMINATION: MM SCREENING DIGITAL BREAST TOMOSYNTHESIS, BILATERAL CLINICAL INFORMATION: Screening. Asymptomatic. COMPARISON: Mammography: This study is compared with prior exams dating back to 2017. TECHNIQUE: Digital breast tomosynthesis is performed in both the craniocaudal and mediolateral oblique views along with computer-aided detection (CAD). Synthesized 2D images are generated from the tomosynthesis. FINDINGS: There are scattered areas of fibroglandular density (ACR BI-RADS breast composition Category b). There are no significant masses, abnormal calcifications, or other abnormalities. There are bilateral benign calcifications. There is a tissue marker in the left breast from prior benign percutaneous biopsy. MM/MM tomosynthesis screening BI IMPRESSION: No mammographic evidence of malignancy. ASSESSMENT: BI-RADS BI-RADS 2 - Benign Findings RECOMMENDATION: Routine annual mammography screening. 1 year F/U This examination should not preclude the clinical evaluation of a suspicious palpable abnormality. This patient's information was entered into a reminder system with a target due date for their next mammogram.
== END 2023-02-15 12:43 | disposition home or self-care (01) ==
LOC: HO.MAMMO 12:42
PROVIDERS: PCP Internal Medicine; Visit Provider Internal Medicine
DX: Z12.31 Encounter for screening mammogram for malignant neoplasm of breast (principal)
CPT/HCPCS: 77063; 77067

== ENCOUNTER → 2023-02-15 13:00 | Outpatient (BNV) | payer MEDICARE, SELFPAY | PROVIDERS: PCP Internal Medicine; Visit Provider Radiology Diagnostic Radiology | DX: Z12.31 Encounter for screening mammogram for malignant neoplasm of breast (principal) | CPT/HCPCS: 77063; 77067 ==

== ENCOUNTER 2023-05-23 09:30 | Outpatient (REF) | payer MEDICARE, SELFPAY ==
[2023-05-23 11:28] LABS: Estimated Average Glucose 169 mg/dL; Hemoglobin A1c % 7.5 % (<6.0)
[2023-05-23 11:48] LABS: Creatinine Urine 77.02 mg/dL; Microalbumin Urine < 5.0 mg/L
[2023-05-23 12:06] LABS: Alanine Aminotransferase 12 U/L (0-31); Albumin Level 4.1 g/dL (3.5-5.0); Alkaline Phosphatase 112 U/L (39-117); Anion Gap 13 (12-20); Aspartate Amino Transferase 14 U/L (5-31); Bilirubin Total 0.3 mg/dL (0.0-1.0); Blood Urea Nitrogen 16 mg/dL (9-16); Calcium 9.8 mg/dL (8.4-10.2); Carbon Dioxide 31 mmol/L (22-29); Chloride 103 mmol/L (96-108); Cholesterol 142 mg/dL (<200); Estimated Glomerular Filt Rate > 60; Glucose Random 121 mg/dL (60-115); HDL Cholesterol 40 mg/dL (>40); LDL Cholesterol Calculated 86 mg/dL (<100); Potassium 3.8 mmol/L (3.3-5.1); Sodium 143 mmol/L (135-145); Total Protein 7.5 g/dL (6.5-8.0); Triglycerides 80 mg/dL (<150)
[2023-05-23 12:11] LABS: Thyroid Stimulating Hormone 2.41 uIU/mL (0.32-4.0)
[2023-05-23 12:12] LABS: Vitamin B12 353 pg/mL (200-900)
== END 2023-05-23 09:31 | disposition home or self-care (01) ==
LOC: HO.LAB 09:30
PROVIDERS: PCP Internal Medicine; Visit Provider Internal Medicine
DX: E11.65 Type 2 diabetes mellitus with hyperglycemia (principal); I10 Essential (primary) hypertension; M22.2X1 Patellofemoral disorders, right knee; F32.9 Major depressive disorder, single episode, unspecified
CPT/HCPCS: 36415; 80053; 80061; 82570; 82607; 83036; 84443

== ENCOUNTER 2023-09-12 11:30 | Outpatient (REF) | payer MEDICARE, SELFPAY ==
[2023-09-12 12:37] LABS: Estimated Average Glucose 174 mg/dL; Hemoglobin A1c % 7.7 % (<6.0)
[2023-09-12 13:01] LABS: Alanine Aminotransferase 13 U/L (0-31); Albumin Level 4.1 g/dL (3.5-5.0); Alkaline Phosphatase 99 U/L (39-117); Anion Gap 14 (12-20); Aspartate Amino Transferase 16 U/L (5-31); Bilirubin Total 0.4 mg/dL (0.0-1.0); Blood Urea Nitrogen 18 mg/dL (9-16); Calcium 10.3 mg/dL (8.4-10.2); Carbon Dioxide 28 mmol/L (22-29); Chloride 105 mmol/L (96-108); Cholesterol 154 mg/dL (<200); Estimated Glomerular Filt Rate > 60; Glucose Random 126 mg/dL (60-115); HDL Cholesterol 38 mg/dL (>40); LDL Cholesterol Calculated 84 mg/dL (<100); Sodium 143 mmol/L (135-145); Total Protein 7.5 g/dL (6.5-8.0); Triglycerides 163 mg/dL (<150)
== END 2023-09-12 11:31 | disposition home or self-care (01) ==
LOC: HO.LAB 11:30
PROVIDERS: PCP Internal Medicine; Visit Provider Internal Medicine
DX: E11.65 Type 2 diabetes mellitus with hyperglycemia (principal); E78.00 Pure hypercholesterolemia, unspecified; F32.5 Major depressive disorder, single episode, in full remission; I10 Essential (primary) hypertension
CPT/HCPCS: 36415; 80053; 80061; 83036

== ENCOUNTER 2024-01-23 09:11 | Outpatient (REF) | payer MEDICARE, SELFPAY ==
[2024-01-23 10:05] LABS: Estimated Average Glucose 174 mg/dL; Hemoglobin A1c % 7.7 % (<6.0)
[2024-01-23 10:36] LABS: Alanine Aminotransferase 12 U/L (0-31); Albumin Level 4.1 g/dL (3.5-5.0); Alkaline Phosphatase 99 U/L (39-117); Anion Gap 13 (12-20); Aspartate Amino Transferase 14 U/L (5-31); Bilirubin Total 0.4 mg/dL (0.0-1.0); Blood Urea Nitrogen 27 mg/dL (9-16); Calcium 10.4 mg/dL (8.4-10.2); Carbon Dioxide 29 mmol/L (22-29); Chloride 102 mmol/L (96-108); Cholesterol 141 mg/dL (<200); Estimated Glomerular Filt Rate > 60; Glucose Random 125 mg/dL (60-115); HDL Cholesterol 38 mg/dL (>40); LDL Cholesterol Calculated 71 mg/dL (<100); Potassium 4.2 mmol/L (3.3-5.1); Sodium 140 mmol/L (135-145); Total Protein 7.4 g/dL (6.5-8.0); Triglycerides 161 mg/dL (<150)
== END 2024-01-23 09:12 | disposition home or self-care (01) ==
LOC: HO.LAB 09:11
PROVIDERS: PCP Internal Medicine; Visit Provider Internal Medicine
DX: E11.65 Type 2 diabetes mellitus with hyperglycemia (principal); E78.00 Pure hypercholesterolemia, unspecified; I10 Essential (primary) hypertension; M70.51 Other bursitis of knee, right knee
CPT/HCPCS: 36415; 80053; 80061; 83036

== ENCOUNTER 2024-04-19 10:08 | Outpatient (REF) | payer MEDICARE, SELFPAY ==
[2024-04-19 10:28] LABS: MANUAL DIFF FLAG NO
[2024-04-19 10:44] LABS: Basophils Absolute Auto 0.1 X10*3/uL (0.0-0.2); Eosinophils Absolute Auto 0.5 X10*3/uL (0.0-0.4); Eosinophils Percent Auto 4.9 % (0-4); Hematocrit 41.5 % (37.0-47.0); Hemoglobin 13.9 g/dl (12.0-16.0); Imm Gran Abs Auto 0.04 X10*3/uL (0.00-0.03); Imm Gran Pct Auto 0.4 % (0.0-0.4); Lymphocytes Percent Auto 30.7 % (20-40); Mean Corpuscular HGB Conc 33.5 g/dl (31.0-35.0); Mean Corpuscular Hemoglobin 27.5 pg (27.0-33.0); Mean Platelet Volume 10.2 fL (9.4-12.3); Monocytes Absolute Auto 0.9 X10*3/uL (0.1-1.2); Monocytes Percent Auto 8.7 % (2-11); Neutrophils Absolute Auto 5.3 x10*3/uL (2.0-8.3); Neutrophils Percent Auto 54.3 % (45-73); Platelet Count 282 X10*3/uL (160-400); Red Blood Count 5.06 X10*6/uL (4.20-5.50); Red Cell Distribution Width 16.4 % (11.0-16.0); White Blood Count 9.8 X10*3/uL (4.8-10.8)
[2024-04-19 11:01] LABS: Estimated Average Glucose 203 mg/dL; Hemoglobin A1C 233.3522 umol/L; Hemoglobin A1c % 8.7 % (<6.0); Total Hemoglobin (HGBA1C) 3277.6171 umol/L
[2024-04-19 11:30] LABS: Alanine Aminotransferase 15 U/L (0-31); Albumin Level 4.1 g/dL (3.5-5.0); Alkaline Phosphatase 101 U/L (39-117); Anion Gap 15 (12-20); Aspartate Amino Transferase 20 U/L (5-31); Bilirubin Total 0.4 mg/dL (0.0-1.0); Blood Urea Nitrogen 16 mg/dL (9-16); Calcium 10.3 mg/dL (8.4-10.2); Carbon Dioxide 28 mmol/L (22-29); Chloride 103 mmol/L (96-108); Cholesterol 135 mg/dL (<200); Estimated Glomerular Filt Rate > 60; Glucose Random 184 mg/dL (60-115); HDL Cholesterol 40 mg/dL (>40); LDL Cholesterol Calculated 57 mg/dL (<100); Potassium 3.9 mmol/L (3.3-5.1); Sodium 142 mmol/L (135-145); Total Protein 7.6 g/dL (6.5-8.0); Triglycerides 194 mg/dL (<150)
[2024-04-19 12:13] LABS: Creatinine Urine 64.75 mg/dL; Microalbumin Urine < 5.0 mg/L
== END 2024-04-19 10:09 | disposition home or self-care (01) ==
LOC: HO.LAB 10:08
PROVIDERS: PCP Internal Medicine; Visit Provider Internal Medicine
DX: E11.9 Type 2 diabetes mellitus without complications (principal); E78.00 Pure hypercholesterolemia, unspecified; I10 Essential (primary) hypertension; M79.18 Myalgia, other site
CPT/HCPCS: 36415; 80053; 80061; 82043; 82570; 83036; 85025

== ENCOUNTER 2024-05-04 13:09 | Outpatient (REF) | payer MEDICARE, SELFPAY | END 2024-05-04 13:10 | disposition home or self-care (01) | LOC: HO.MAMMO 13:09 | PROVIDERS: PCP Internal Medicine; Visit Provider Internal Medicine | DX: Z12.31 Encounter for screening mammogram for malignant neoplasm of breast (principal) | CPT/HCPCS: 77063; 77067 ==

== ENCOUNTER → 2024-05-04 13:30 | Outpatient (BNV) | payer MEDICARE, SELFPAY | PROVIDERS: PCP Internal Medicine; Visit Provider Internal Medicine | DX: Z12.31 Encounter for screening mammogram for malignant neoplasm of breast (principal) | CPT/HCPCS: 77063; 77067 ==

== ENCOUNTER 2024-06-19 09:13 | Outpatient (REF) | payer MEDICARE, SELFPAY ==
--- OUTSIDE RECORDS SUMMARY | 2024-06-22 09:38 | XMS_ITS | Clinical Summary ---
Author Organization [facility] ity Address [address] [place] [address] Care Team Providers Care Dispatcher Maintenance Service Name Role Phone Nickie Maher MD Primary Care Provider [phone] Social History Tobacco Use Types Packs/Day Years [...] DTaP,Tdap,and Td Vaccines (1 - Tdap) 1973 Pneumococcal Vaccine: 50+ Ye ars (1 of 1 - PCV) 2004 Zoster Vaccines (1 of 2) 2004 Colorectal Cancer Screening: Colonoscopy 11/29/2023 Depression Screening 11/29/2023 Falls Risk Assessment 11/29/2023 Hepatitis C Screening 11/29/2023 Osteoporosis Screening (Bone Density Screening) 11/29/2023 Social Influencers of Health Screening 11/29/2023 COVID-19 Vaccine ( - 2023-2 5 season) 2024 Influenza Vaccine [...] patient's age to complete this topic Meningococcal B Vacine Aged Out No lo nger eligible based on patient's age to complete this topic RSV Immunization Patients Un brittney 20 months Aged Out No longer eligible b ased on patient's age to complete this topic Varicella Vaccines Aged Out No longer eligible based on patient's age to complete this topic Care Teams Dispatcher Maintenance Service Relationship Specialty Start Date End Date Nickie Maher MD [facility] [address] PCP - General Internal Medicine 07/12/16
== END 2024-06-19 09:14 | disposition home or self-care (01) ==
LOC: HO.HOSX 09:13
PROVIDERS: Visit Provider Orthopaedic Surgery
DX: Z13.89 Encounter for screening for other disorder (principal)
CPT/HCPCS: 99202

== ENCOUNTER 2024-06-19 13:40 | Outpatient (REF) | payer MEDICARE, SELFPAY | END 2024-06-19 13:41 | disposition home or self-care (01) | LOC: HO.XRAY 13:40 | PROVIDERS: PCP Internal Medicine; Visit Provider Orthopaedic Surgery | DX: M17.11 Unilateral primary osteoarthritis, right knee (principal) | CPT/HCPCS: 73562 ==

== ENCOUNTER → 2024-06-19 13:50 | Outpatient (BNV) | payer MEDICARE, SELFPAY | PROVIDERS: PCP Internal Medicine; Visit Provider Radiology Diagnostic Radiology | DX: M25.561 Pain in right knee (principal) | CPT/HCPCS: 73562 ==

== ENCOUNTER 2024-06-19 14:17 | Outpatient (AMB) | payer MEDICARE, SELFPAY ==
--- NOTE | 2024-06-19 14:17 | MHC.OFFVIS ---
Vital Signs 06/19/24 14:19 Height 5 ft 2 in Weight 218 lb BMI 39.9 Intake Visit Reasons: Right knee pain and giving way Intake Note: Lakeisha is a 68 year old female who presents with complaints of progressively worsening right knee pain and giving way. She describes her pain as sharp in nature. Most of the pain is along the medial and posterior aspects of her right knee. Her symptoms have gotten worse over the last year in spite of continued non operative treatments. She has had cortisone injections in the past which gave her minimal relief. She has also tried physical therapy exercises which aggravated her pain. She has tried Tylenol and anti-inflammatory medicines which gave her minimal relief. She has failed the last 6 weeks of conservative treatment. Fingerprint Technician Required: Yes Fingerprint Technician Language: Telecom Manager Services: Fingerprint Technician Present Fingerprint Technician Name: LOR Mcdermott/AYSHA Allergies Metformin & Diet Manage Prod Adverse Reaction (Unknown, Uncoded 06/19/24 14:19) Diarrhea Medication List - Last Reconciled 06/19/24 by Dave Sexton MD albuterol sulfate 90 mcg/actuation 0 mcg inhalation allopurinol 300 mg PO DAILY amlodipine 10 mg PO DAILY aspirin 81 mg PO DAILY calcium carbonate-vitamin D3 600 mg-5 mcg (200 unit) tabs PO diclofenac sodium 75 mg PO BID empagliflozin (Jardiance) 25 mg PO DAILY gabapentin 600 mg PO TID glipizide ER mg PO DAILY metformin ER 1,000 mg PO BID methylcellulose (laxative) (Citrucel) 500 mg PO TID 30 days metoprolol succinate ER mg PO DAILY olmesartan-hydrochlorothiazide 40-25 mg 1 tab PO DAILY omeprazole 20 mg PO DAILY rosuvastatin mg PO [facility] Medical History (Updated 06/19/24 @ 14:31 by Dave Sexton MD) Heart murmur Asthma Diabetes Gout HTN (hypertension) Surgical History H/O colonoscopy History of esophagogastroduodenoscopy (EGD) History of tubal ligation Family History Maternal Uncle Cancer Maternal Aunt Cancer Social History Household Members Other:: Niece lives with her Alcohol intake: never Patient Tobacco Use Status: Never used Tobacco Current occupational status: unemployed Physical Exam Vital Signs: BMI result Body Mass Index 39.9 Const Other: Well-nourished well-developed very friendly female awake alert and oriented x3 in no acute distress Extrem Other: Bilateral lower extremity examination shows good capillary refill, no skin lesions noted, normal sensation light touch Right knee examination shows a minimal effusion, minimal crepitus with range of motion, tenderness along her medial joint line, positive Nohemy's test, no instability Results Reviewed Results Reviewed: Standing full weight-bearing x-rays of the patient's right knee show mild diffuse joint space narrowing, no acute bony abnormalities Assessment & Plan Assessment & Plan (1) Tear of medial meniscus of right knee: Code(s): S83.241A - Other tear of medial meniscus, current injury, right knee, initial encounter Category: Medical Plan Ms. Rita Banks presents with progressively worsening right knee pain and mechanical symptoms most likely due to a medial meniscus tear. Thus, I will send the patient for an MRI of her right knee for further evaluation. I will see her back once the MRI is completed to discuss the findings and treatment options. Feel free to call me at any time should questions regarding her orthopedic management arise. Thank you very much for asking me to see this very friendly patient. I spent 20 minutes in reviewing the patient's records and imaging studies, seeing the patient and documenting in the medical record. Orders: Orders XR knee RT 3V Today M25.561 - Pain in right knee MR knee RT wo con Today S83.241A - Other tear of medial meniscus, current injury, right knee, initial encounter Coding Level of Care Code New Pt Level 3 (73906) Complex EM visit Add On G2211 Diagnoses Tear of medial meniscus of right knee S83.241A
[2024-06-19 14:19] VITALS: BMI 39.9
--- OUTSIDE RECORDS SUMMARY | 2024-06-19 15:13 | XMS_ITS | Clinical Summary ---
Author Organization [facility] ity Address [address] [place] [address] Care Team Providers Care Layer Out Plate Glass Name Role Phone Nickie Maher MD Primary Care Provider [phone] Social History Tobacco Use Types Packs/Day Years Used Date Smoking Tobacco: Never Assessed Comments Unknown Sex and Gender Information Value Date Recorded Sex Assigned at Not on file Legal Sex Female 2:56 PM EST Gender Identity Not on file Sexual Orientation Not on file Plan of Treatment Health Maintenance Due Date Last Done Comments Breast Cancer Screening 1955 DTaP,Tdap,and Td Vaccines (1 - Tdap) 1973 Zoster Vaccines (1 of 2) 2004 Pneumococcal Vaccine: 50+ Ye ars (1 of 1 - PCV) 08/17/2019 Colorectal Cancer Screening: Colonoscopy 11/29/2023 Depression Screening 11/29/2023 Falls Risk Assessment 11/29/2023 Hepatitis C Screening 11/29/2023 Osteoporosis Screening (Bone Density Screening) 11/29/2023 Social Influencers of Health Screening 11/29/2023 COVID-19 Vaccine (1 - 2023-2 5 season) 2024 Influenza Vaccine (#1) 2024 RSV Immunization Patients 60 + Years Old (1 - 1-dose 75+ series) 2029 HIB Vaccines Aged Out No longer eligi ble based on patient's age to complete this topic HPV Vaccines Aged Out No longer eligi ble based on patient's age to complete this topic Hepatitis A Vaccines Aged Out No long er eligible based on patient's age to complete this topic Hepatitis B Vaccines Aged Out No long er eligible based on patient's age to complete this topic IPV Vaccines Aged Out No longer eligi ble based on patient's age to complete this topic MMR Vaccines Aged Out No longer eligi ble based on patient's age to complete this topic Meningococcal ACWY Vaccine Aged Out N o longer eligible based on patient's age to complete this topic RSV Immunization Patients Un brittney 20 months Aged Out No longer eligible b ased on patient's age to complete this topic Varicella Vaccines Aged Out No longer eligible based on patient's age to complete this topic Care Teams Layer Out Plate Glass Relationship Specialty Start Date End Date Nickie Maher MD [address] [facility] [address] [place] PCP - General Internal Medicine 07/12/16
== END 2024-06-19 14:33 | disposition home or self-care (01) ==
PROVIDERS: PCP Internal Medicine; Visit Provider Orthopaedic Surgery
DX: S83.241A Other tear of medial meniscus, current injury, right knee, initial encounter (principal)
CPT/HCPCS: 99203; G2211

== ENCOUNTER 2024-09-03 12:04 | Outpatient (REF) | payer MEDICARE, SELFPAY ==
[2024-09-03 13:54] LABS: Alanine Aminotransferase 10 U/L (0-31); Albumin Level 4.1 g/dL (3.5-5.0); Alkaline Phosphatase 113 U/L (39-117); Anion Gap 12 (12-20); Aspartate Amino Transferase 17 U/L (5-31); Bilirubin Total 0.3 mg/dL (0.0-1.0); Blood Urea Nitrogen 16 mg/dL (9-16); Calcium 9.6 mg/dL (8.4-10.2); Carbon Dioxide 31 mmol/L (22-29); Chloride 102 mmol/L (96-108); Estimated Glomerular Filt Rate > 60; Glucose Random 177 mg/dL (60-115); Potassium 4.1 mmol/L (3.3-5.1); Sodium 141 mmol/L (135-145); Total Protein 7.4 g/dL (6.5-8.0)
[2024-09-03 14:07] LABS: Estimated Average Glucose 212 mg/dL; Hemoglobin A1C 261.0688 umol/L
--- OUTSIDE RECORDS SUMMARY | 2024-09-03 14:36 | XMS_ITS | Clinical Summary ---
Author Organization [facility] ity Address [address] [place] [address] Care Team Providers Care Talent Advisor Name Role Phone Nickie Maher MD Primary Care Provider [phone] Social History Tobacco Use Types Packs/Day Years [...] - 2023-2 5 season) 2024 Influenza Vaccine (Season Ended) 2025 RSV Immunization Adult Patie nts (1 - 1-dose 75+ series) 2029 HIB [...] age to complete this topic Meningococcal B Vaccine Aged Out No l onger eligible based on patient's age to complete this topic RSV Immunization Patients Un brittney 20 months Aged Out No longer eligible b ased on patient's age to complete this topic Varicella Vaccines Aged Out No longer eligible based on patient's age to complete this topic Care Teams Talent Advisor Relationship Specialty Start Date End Date Nickie Maher MD [facility] [address] PCP - General Internal Medicine 07/12/16
== END 2024-09-03 12:05 | disposition home or self-care (01) ==
LOC: HO.LAB 12:04
PROVIDERS: PCP Internal Medicine; Visit Provider Internal Medicine
DX: E11.65 Type 2 diabetes mellitus with hyperglycemia (principal); E78.00 Pure hypercholesterolemia, unspecified; I10 Essential (primary) hypertension; M17.11 Unilateral primary osteoarthritis, right knee
CPT/HCPCS: 36415; 80053; 83036

== ENCOUNTER 2024-12-03 11:23 | Outpatient (REF) | payer MEDICARE, SELFPAY ==
[2024-12-03 12:04] LABS: Hemoglobin A1C 213.2965 umol/L; Total Hemoglobin (HGBA1C) 3163.9930 umol/L
[2024-12-03 12:32] LABS: Alanine Aminotransferase 11 U/L (0-31); Albumin Level 4.2 g/dL (3.5-5.0); Alkaline Phosphatase 91 U/L (39-117); Anion Gap 13 (12-20); Aspartate Amino Transferase 18 U/L (5-31); Blood Urea Nitrogen 21 mg/dL (9-16); Calcium 9.3 mg/dL (8.4-10.2); Carbon Dioxide 27 mmol/L (22-29); Chloride 109 mmol/L (96-108); Estimated Glomerular Filt Rate > 60; Potassium 4.4 mmol/L (3.3-5.1); Sodium 145 mmol/L (135-145); Total Protein 7.2 g/dL (6.5-8.0)
--- OUTSIDE RECORDS SUMMARY | 2024-12-03 12:41 | XMS_ITS | Clinical Summary ---
[facility] Organization [facility] Address [address] [place] [address] Care Team Providers Care Slurry Tank Operator Name Role Phone Nickie Maher MD Primary Care Provider [phone] Social History Tobacco Use Types Packs/Day Years [...] 2) 2004 Colorectal Cancer Screening: Colonoscopy 11/29/2023 Falls Risk Assessment 11/29/2023 Hepatitis C Screening 11/29/2023 Osteoporosis Screening (Bone Density Screening) 11/29/2023 Social Influencers of Health Screening 11/29/2023 COVID-19 Vaccine (1 - 2023-2 5 season) 2024 Depression Screening 05/09/2024 Influenza Vaccine (#1) 2025 RSV Immunization Adult Patie nts (1 [...] age to complete this topic Care Teams Slurry Tank Operator Relationship Specialty Start Date End Date Nickie Maher MD [facility] [address] PCP - General Internal Medicine 07/12/16
== END 2024-12-03 11:24 | disposition home or self-care (01) ==
LOC: HO.LAB 11:23
PROVIDERS: PCP Internal Medicine; Visit Provider Internal Medicine
DX: E11.65 Type 2 diabetes mellitus with hyperglycemia (principal); M17.11 Unilateral primary osteoarthritis, right knee; I10 Essential (primary) hypertension; Z68.38 Body mass index [BMI] 38.0-38.9, adult
CPT/HCPCS: 36415; 80053; 83036